=== PATIENT | female | born 1985 | race Caucasian/White ===

== ENCOUNTER 2018-11-23 22:57 | Inpatient (IN) | payer OTHER ==
[~2018-11-23] VITALS: Ht 167.6 cm; Wt 68.0 kg
[2018-11-23 23:04] VITALS: Ht 167.6 cm; Wt 68.0 kg
--- NOTE | 2018-11-23 23:10 | NUR ---
PT PLACED ON 2L O2 VIA NC FOR O2 SAT OF 91%. PT O2 SAT 96% AT THIS TIME.
--- NOTE | 2018-11-23 23:39 | NUR ---
PATIENT SEEN VERY DROWSY, DIFFICULT TO AROUSE. STABLE VITAL SIGNS. EMS REPORTS ETOH INTOXICATION.
--- NOTE | 2018-11-24 | NUR ---
PATIENT WAS BROUGHT IN BY EMS WITH REPORT SHE WAS FOUNG ON " THE BATHROOM FLOOR " ALTERED. PATIENT ON ARRIVAL IS VERY DROWSY, NOT RESPONDING VERBALLY. DIFFICULT TO AWAKEN. RESPONDS TO PAIN. UNABLE TO ASSESS MENTAL STATUS. PATIENT CANNOT TELL WHAT HAPPEN.
--- NOTE | 2018-11-24 00:14 | NUR ---
PATIENT WENT FOR CT SCAN OF THE HEAD.
--- NOTE | 2018-11-24 00:19 | NUR ---
PATIENT RETURN FROM CT SCAN. VITAL SIGNS STABLW.
--- NOTE | 2018-11-24 00:25 | NUR ---
WAFER FAB TECHNICIAN AT THE BEDSIDE DRAWING BLOOD FOR ORDERED BLOOD TEST.
[2018-11-24 00:55] LABS: BASOPHIL % 0.3 % (0-2); PLATELET COUNT 385 x10^3mcL (130-400)
[2018-11-24 00:59] LABS: RED CELL DISTRIBUTION WIDTH 14.6 % (11.5-14.5)
[2018-11-24 01:23] LABS: CALCIUM 8.5 mg/dL (8.5-10.1); CARBON DIOXIDE 21.3 mmol/L (21-32); CHLORIDE SERUM 105 mmol/L (98-107); CREATININE SERUM 0.6 mg/dL (0.6-1.0); GFR1 > 60 mL/min; GLUCOSE SERUM 146 mg/dL (74-106); POTASSIUM SERUM 3.7 mmol/L (3.5-5.1); SODIUM SERUM 142 mmol/L (136-145)
--- NOTE | 2018-11-24 02:13 | NUR ---
SLEEPING , RESPONDS TO PAIN.
--- NOTE | 2018-11-24 04:15 | NUR ---
PATIENT IS SLEEPING, CHANGING HER POSITIONG FOR COMFORT,
--- NOTE | 2018-11-24 05:00 | NUR ---
PATIENT WOKE UO AND STATED IT WAS HER BIRTHDAY YESTERDAY, AND SHE WAS DRINKING WITH FRIENDS, SHE CANNOT RECALL WHAT HAPPEN.
--- NOTE | 2018-11-24 06:06 | NUR ---
PATIENT WOKE UP , HEART RATE WENT TO 158 BPM. PATIENT DENIES NAY PAIN OR DISCOMFORT. DR ELISE NOTIFIED. PATIEN IS TRYING TO GET FAMILY TO HET HER. RESTING AT THIS TIME , HEART RATE 104 BPM.
--- NOTE | 2018-11-24 07:08 | NUR ---
PATIENT;S SPOUSE IS HERE . DR ELISE WAS ASKED IF THE PATIENT CAN BE DISCHARGED TO FAMILY. MD WANT TO ORDER FLUID AND ATIVAN FOR THE TACHYCARDIA.
[2018-11-24 08:02] LABS: MAGNESIUM 2.3 mg/dL (1.8-2.4); PHOSPHOROUS 4.5 mg/dL (2.5-4.9)
[2018-11-24 08:07] LABS: CHOLESTEROL/HDL RATIO 5.4
--- NOTE | 2018-11-24 08:18 | NUR ---
REPORT GIVEN TO TONIO FLETCHER ON MS/T FOR FURTHER CARE OF PT
--- NOTE | 2018-11-24 08:34 | NUR ---
RECEIVED PT FROM Eddie, REPORT GIVEN BY CHANCE LOVE. PT ARRIVED ON A GURNEY ESCORTED BY RN AND . PT IS AAOX4, VERBALLY RESPONSIVE, FOLLOWS COMMANDS, GROGGY WITH H/A 4/10, REFUSES PAIN MEDICATION. RESP EVEN, SHALLOW, AND UNLABORED. LUNG SOUNDS CTA. ON 02 N/C AT 2LPM. TELE [address] READING SINUS TACH, HR 116 BPM. PT DENIES CHEST PAIN AND PRESSURE. ABDOMEN SOFT, NONTENDER, NONDISTENDED. BOWEL SOUNDS ACTIVE. PT DENIES N/V AT THIS TIME. SKIN CDI, PERIPHERAL PULSES PALPABLE. NO EDEMA NOTED. IVF RUNNING TO LFA, SITE IS PATENT WITH NO S/S OF INFECTION OR INFILTRATION NOTED. PT ORIENTED TO ROOM, BATHROOM AND CALL LIGHT. BED IN LOW POSITION, CALL LIGHT WITHIN REACH.
--- NOTE | 2018-11-24 09:42 | NUR ---
REPORTED TO DR. REYES, PT'S LACTIC ACID + 2.4. DR. REYES STATED HE WILL ORDER A SECOND LACTIC ACID.
--- NOTE | 2018-11-24 10:01 | NUR ---
PT RECEIVING EKG AT THIS TIME.
[2018-11-24 10:40] VITALS: BP 121/68
--- NOTE | 2018-11-24 11:45 | NUR ---
PT IS SLEEPING BUT EASILY AROUSABLE. NO S/S OF DISTRESS NOTED. RESP EVEN AND UNLABORED. AT BEDSIDE. CALL LIGHT WITHIN REACH.
[2018-11-24 12:27] VITALS: BP 115/78
--- NOTE | 2018-11-24 15:06 | NUR ---
PT IS SITTING UP IN BED VISITING WITH FAMILY. DENIES H/A, PAIN OR DISTRESS AT THIS TIME. EDUCATED PT ON HGBA1C RESULTS AND INDICATIONS, AND DIETARY CHANGES. PT VERBALIZED UNDERSTANDING. CALL LIGHT WITHIN REACH.
[2018-11-24 15:52] LABS: UA SPECIFIC GRAVITY 1.015 (1.005-1.035); microscopic required? YES; urine erythrocyte TRACE (NEGATIVE)
[2018-11-24 16:01] LABS: AMPHETAMINE QUAL UR NONE DETECTED (See below)
[2018-11-24 17:36] VITALS: BP 115/75
--- NOTE | 2018-11-24 18:39 | NUR ---
PT IS SITTING UP IN BED VISTING WITH FAMILY. RESP EVEN AND UNLABORED. ON R/A. DENIES DIZZINESS, H/A, N/V AT THIS TIME. TELE [address] READING SINUS TACH HR AT 115 BPM. IVF RUNNING TO [facility], PATENT, SITE WNL. PT DENIES PAIN OR DISCOMFORT. WILL ENDORSE ALL CARE TO NOC CHANCE.
--- NOTE | 2018-11-24 20:00 | NUR ---
PATIENT RECEIVED IN BED AWAKE,ALERT AND ORIENTED X4, NO DT'S, NO SZ. DENIED HEADACHE BUT HAD VERBALIZED THAT SHE SOMETIMES FEELS DIZZY. SPEECH IS CLEAR. FAMILY AT BEDSIDE. PATIENT IS SITE NO SIGN OF INFILTRATION. OFFERED NO COMPLAINTS THIS TIME. T3ELE#[id number], ST, HR RANGES FROM 102-108 BPM. PATIENT AND FAMILY INFORMED ABOUT POC THIS SHIFT. SAFETY/FALL PRECAUTIONS MAINTAINED. WILL CONTINUE TO MONITOR.
[2018-11-24 20:05] VITALS: BP 104/69
--- NOTE | 2018-11-24 21:17 | NUR ---
PATIENT ALSO REFUSED LIBRIUM SCHEDULED. STATED SHE DOESNT NEED IT, INFORMED ABOUT ITS PURPOSE AND ACTION.WILL INFORM MD.
--- NOTE | 2018-11-24 21:17 | NUR ---
SCHEDULED MEDS ADMINISTERED, PATIENT INFORMED ABOUT EACH MEDS ACTIONS AND PURPOSE PRIOR. PATIENT WAS MEDICAETD WITH ZOFRAN FOR COMPLAINT OF NAUSEA. WILL CHECK EFFECTIVENESS.
--- NOTE | 2018-11-25 00:32 | NUR ---
PATIENT ROUND MADE THIS TIME, PATIENT WITH EYES CLOSED, SLEEPING, MOTHER AT BEDSIDE. PATIENT HR=93BPM. SAFETY MAINTAINED. CALM AND COMFORTABLE.WILL CONTINUE TO MONITOR.
[2018-11-25 05:32] VITALS: BP 106/62
--- NOTE | 2018-11-25 06:33 | NUR ---
PATIENT HAD A RESTFUL AND COMFORTABLE NIGHT, NO DT'S , NO SZ. HAD REFUSED LIBRIUM SCHEDULED DR JEFFRIES AWARE. IV SITE NO SIGN OF INFILTRATION. AMBULATORY WITH STEADY GAIT. SAFETY/FALL PRECAUTIONS MAINTAINED. WILL ENDORSE CONTINUITY OF CARE TO INCOMING NURSE.
[2018-11-25 07:03] LABS: BASOPHIL % 0.1 % (0-2); PLATELET COUNT 322 x10^3mcL (130-400); RED CELL DISTRIBUTION WIDTH 14.3 % (11.5-14.5)
--- NOTE | 2018-11-25 07:15 | NUR ---
BEDSIDE REPORT PERFORMED WITH INCOMING NURSE BUSTER.
[2018-11-25 07:16] VITALS: BP 97/62
--- NOTE | 2018-11-25 07:30 | NUR ---
PT IS AAOX4. FOLLOWS COMMANDS. C/O MILD DIZZINESS. RESP EVEN AND UNLABORED. LUNG SOUNDS CTA. ON R/A. TELE [address] READING NSR. NO C/O OF PALPITATIONS OR CHEST PAIN. ABDOMEN ROUND, NONTENDER, NONDISTENDED. BOWEL SOUNDS ACTIVE X4. SKIN CDI, NO EDEMA. IVF RUNNING TO LFA, PATENT WITH NO S/S OF INFECTION OR INFILTRATION. DENIES PAIN AT THIS TIME. MOTHER AT BEDSIDE. CALL LIGHT WITHIN REACH.
[2018-11-25 08:28] LABS: CALCIUM 7.9 mg/dL (8.5-10.1); CARBON DIOXIDE 25.8 mmol/L (21-32); CHLORIDE SERUM 107 mmol/L (98-107); CREATININE SERUM 0.7 mg/dL (0.6-1.0); GFR1 > 60 mL/min; GLUCOSE SERUM 108 mg/dL (74-106); MAGNESIUM 1.8 mg/dL (1.8-2.4); PHOSPHOROUS 3.1 mg/dL (2.5-4.9); POTASSIUM SERUM 3.8 mmol/L (3.5-5.1); SODIUM SERUM 143 mmol/L (136-145)
--- NOTE | 2018-11-25 09:12 | NUR ---
PT STATES SHE FEELS NAUSEATED BUT REFUSED ZOFRAN. REFUSED SODIUM DOCUSATE STATED IT IS NOT NECESSARY AT THIS TIME. DUE MEDS GIVEN. PT ASSISTED WITH MEAL SET UP. PT STATES SHE STILL FEELS WEAK AND DIZZY WHEN ATTEMPTING TO WALK TO THE BATHROOM. PT INSTRUCTED TO USE CALL LIGHT TO GET HELP AMBULATING TO BATHROOM. MOTHER AT BEDSIDE. RESP EVEN AND UNLABORED. CALL LIGHT WITHIN REACH. BED IN LOW POSTION.
--- NOTE | 2018-11-25 10:55 | NUR ---
INCREASED RATE OF NORMAL SALINE IV TO 150ML/HR FOR 6 HOURS AND 40 MIN PER ORDER. PT MADE AWARE.
[2018-11-25 13:02] VITALS: BP 127/86
[2018-11-25 13:13] VITALS: BP 127/86
--- NOTE | 2018-11-25 13:50 | NUR ---
PT DISCHARGED IN NO DISTRESS. DISCHARGE INSTRUCTIONS REVIEWED. ALL FORMS SIGNED. VS: 98.7, 99, 18, 127.86, 100% R/A. IV CATH TO LFA REMOVED INTACT. SITE WNL, COVERED WITH GUAZE AND BANDAID. PT DENIES PAIN OR DISCOMFORT AT TIME OF DISCHARGE. ALL PERSONAL BELONGINGS TAKEN HOME.
== END 2018-11-25 14:14 | disposition home or self-care (01) | DRG 92 ==
LOC: ED 22:57 → DU 11-24 07:25
PROVIDERS: Emergency Medicine; ADMIT Internal Medicine
DX: G92 Toxic encephalopathy (principal); E87.2 Acidosis; R65.10 Systemic inflammatory response syndrome (SIRS) of non-infectious origin without acute organ dysfunction; F10.129 Alcohol abuse with intoxication, unspecified; R73.9 Hyperglycemia, unspecified; Y90.0 Blood alcohol level of less than 20 mg/100 ml; D72.829 Elevated white blood cell count, unspecified; E78.5 Hyperlipidemia, unspecified; Z82.49 Family history of ischemic heart disease and other diseases of the circulatory system; Z83.3 Family history of diabetes mellitus; Z82.0 Family history of epilepsy and other diseases of the nervous system; Z88.6 Allergy status to analgesic agent
CPT/HCPCS: 82962; 83880; G0480; J2060; J2405; J7030; Q0092